=== PATIENT | female | born 1995 | race Two or more races ===

== ENCOUNTER 2024-04-07 13:24 | Emergency (ER) | payer OTHER, SELFPAY ==
[2024-04-07] VITALS (18 sets, daily range): BP systolic 119–147; BP diastolic 79–100; PULSE 83–98; TEMP 36.5; O2SAT 95–98; BMI 63.1
--- NOTE | 2024-04-07 13:26 | ECG_ITS ---
[facility] Test Date: 2024-04-07 Pat Name: EMMA OLIVO Department: Room: - Gender: Female [employer]: : 1995 Requested By: [id number] Order Number: [id number] Reading MD: CARL ADKINS Measurements Intervals [place] Rate: 94 P: 19 NE: 138 QRS: 67 QRSD: 96 T: 1 QT: 362 QTc: 413 Interpretive Statements 1100 Sinus rhythm 4068 Nonspecific [place] abnormality 9130 borderline ECG No previous ECG available for comparison Electronically Signed On 04-08-2024 17:38:53 EDT by CARL ADKINS
[2024-04-07] MEDS: 0.9 % SODIUM CHLORIDE 1,000 ML 1000 ML IV (13:48)
[2024-04-07 14:02] LABS: Basophils Absolute Auto 0.1 10^3/uL (0.0-0.1); Basophils Percent Auto 0.6 % (0.2-2.0); Eosinophils Absolute Auto 0.3 10^3/uL (0.0-0.7); Eosinophils Percent Auto 3.3 % (0.9-7.0); Hematocrit 39.1 % (36.0-48.0); Hemoglobin 13.3 g/dL (12.0-16.0); Immature Granulocytes Abs Auto 0.05 10^3/uL (0.00-0.03); Immature Granulocytes Pct Auto 0.5 % (0.0-0.5); Lymphocytes Absolute Auto 2.2 10^3/uL (1.2-3.8); Lymphocytes Percent Auto 22.3 % (20.5-60.0); Mean Corpuscular Hemoglobin 28.2 pg (26.7-34.0); Mean Platelet Volume 11.2 fL (9.5-13.5); Monocytes Absolute Auto 0.7 10^3/uL (0.3-0.8); Monocytes Percent Auto 7.2 % (1.7-12.0); Neutrophils Absolute Auto 6.6 10^3/uL (1.4-6.5); Neutrophils Percent Auto 66.1 % (43.0-75.0); Platelet Count 225 10^3/uL (150-450); Red Blood Count 4.71 10^6/uL (4.20-5.40); White Blood Count 9.9 10^3/uL (4.0-11.0)
[2024-04-07 14:15] LABS: Alanine Aminotransferase 39 U/L (14-59); Albumin Level 3.6 g/dL (3.4-5.0); Alkaline Phosphatase 82 U/L (46-116); Anion Gap 12.1; Aspartate Amino Transferase 24 U/L (15-37); BUN Creatinine Ratio 8.9; Bilirubin Total 0.7 mg/dL (0.2-1.0); Calcium 9.4 mg/dL (8.5-10.1); Carbon Dioxide 29.1 mmol/L (21.0-32.0); Chloride 102 mmol/L (98-107); Estimated GFR (African America >60 (>=60); Estimated GFR (Non-African Ame >60 (>=60); Globulin 3.5 g/dL; Glucose 129 mg/dL (74-106); Magnesium 1.4 mg/dL (1.8-2.4); Potassium 3.2 mmol/L (3.5-5.1); Sodium 140 mmol/L (136-145); Total Protein 7.1 g/dL (6.4-8.2)
[2024-04-07] MEDS: POTASSIUM BICARBONATE/CIT 25 MEQ TABLET EFF 50 MEQ PO (14:42)
[2024-04-07] MEDS: MAGNESIUM SULFATE IN WATER 2 GM/50 ML PREMIX IV (14:43)
--- NOTE | 2024-04-07 15:12 | ED.ALLEREA1 ---
HPI - Allergic Reaction General Chief complaint: Allergic Reaction Stated complaint: ALLERGIC REACTION Time Seen by Provider: 04/07/24 13:35 Source: patient Mode of arrival: ambulance Limitations: no limitations History of Present Illness HPI narrative: The patient being evaluated in the ER for muscle spasm and symptoms of dry mouth after she was brought to us by the EMS, patient mentioned that she feels like she have a spasm in her upper lower extremities as well as abdomen and she also mentioned that this all started after almost on she started having migraine she presented to [facility] ER, she was treated there with Haldol after which she started having some muscle spasm and she was treated with Ativan when her next visit Right now the patient is not taking any intervention or Benadryl but she mentioned that she is still feeling that she is thirsty all the time in addition to this muscle spasm in her upper and lower extremities She does not have those muscles at the moment while I examined her Related Data Allergies Allergy/AdvReac Type Severity Reaction Status Date / Time acetaminophen [From Vicodin] Allergy Severe Hives Verified 04/07/24 13:30 cephalexin [From Keflex] Allergy Severe Hives Verified 04/07/24 13:30 hydrocodone [From Vicodin] Allergy Severe Hives Verified 04/07/24 13:30 oxycodone [From Percocet] Allergy Severe Hives Verified 04/07/24 13:30 droperidol AdvReac Severe dystonic Verified 04/07/24 13:30 reaction metoclopramide [From Reglan] AdvReac Severe dystonic Verified 04/07/24 13:30 reaction prochlorperazine AdvReac Severe dystonic Verified 04/07/24 13:30 [From Compazine] reaction Sulfa (Sulfonamide AdvReac Severe Hives Verified 04/07/24 13:30 Antibiotics) Review of Systems ROS Status of ROS 10 or more systems reviewed and unremarkable except as noted in history and below Exam Narrative Exam Narrative: Nurses notes and vital signs reviewed and patient is not hypoxic. General: Well-appearing and in no apparent distress. Skin: Warm, dry, no pallor noted. No rash. Head: Normocephalic, atraumatic. Neck: Supple, non-tender. Eye: Pupils are equal, round and EOMI. No scleral icterus. Ears, Nose, Mouth, and Throat: TM are clear, no nasal mucosal hypertrophy. Oral mucosa is moist, no posterior oropharynx erythema, uvula is mid-line Cardiovascular: Regular Rate and Rhythm without murmur, gallop or rub. Respiratory: No accessory muscle use or respiratory distress. Lungs are clear to auscultation, no wheezing, rales or rhonchi Chest Wall: no tenderness Back: No midline thoracic or lumbar vertebral tenderness. No CVA tenderness Musculoskeletal: normal ROM, no calf or popliteal tenderness, no lower extremity edema/swelling GI: Abdomen is soft, non-distended. Normal bowel sounds. No masses appreciated. No tenderness to palpation. No rebound, guarding, or rigidity noted. Neurological: A&O x4. No cranial nerve dysfunction observed. No truncal ataxia. Moves all extremities. Sensation intact. Psychiatric: Cooperative and interactive. Normal mood and affect. Constitutional Vital Signs, click to edit/add: Last Vital Signs Temp 97.7 F 04/07/24 13:30 Pulse 85 04/07/24 14:50 Resp 16 04/07/24 14:50 BP 142/88 H 04/07/24 14:39 Pulse Ox 97 04/07/24 14:50 O2 Del Method Room Air 04/07/24 13:37 Course Vital Signs Vital signs: Vital Signs Pulse Rate 97 H 04/07/24 13:27 Respiratory Rate 17 04/07/24 13:27 Temperature 97.7 F 04/07/24 13:30 Pulse Rate 85 04/07/24 14:50 Respiratory Rate 16 04/07/24 14:50 Blood Pressure 142/88 H 04/07/24 14:39 Pulse Oximetry 97 04/07/24 14:50 Oxygen Delivery Method Room Air 04/07/24 13:37 MDM - Allergic Reaction MDM Narrative Medical decision making narrative: The patient EKG in the ER showing a heart rate of [address] elevation or depression CBC and chemistry showed a low magnesium as well as low potassium magnesium will be replaced with IV magnesium as well as a potassium with p.o. potassium Patient was instructed on hydration he also was instructed about increasing her dietary intake of magnesium potassium rich food and follow-up with her doctor within a week The patient is to follow up with primary care physician in next 2-3 days or to return to the emergency department should any of the signs or symptoms worsen or new symptoms develop. The patient agrees with the following Diagnosis and Treatment plan and the patient will be discharged home. Lab Data Labs: Lab Results 04/07/24 Range/Units 13:54 WBC 9.9 (4.0-11.0) 10^3/uL RBC 4.71 (4.20-5.40) 10^6/uL Hgb 13.3 (12.0-16.0) g/dL Hct 39.1 (36.0-48.0) % MCV 83.0 (81.0-99.0) fL MCH 28.2 (26.7-34.0) pg MCHC 34.0 (29.9-35.2) g/dL RDW 14.0 (11.0-15.0) % Plt Count 225 (150-450) 10^3/uL MPV 11.2 (9.5-13.5) fL Neut % (Auto) 66.1 (43.0-75.0) % Lymph % (Auto) 22.3 (20.5-60.0) % [place] % (Auto) 7.2 (1.7-12.0) % Eos % (Auto) 3.3 (0.9-7.0) % Baso % (Auto) 0.6 (0.2-2.0) % Neut # (Auto) 6.6 H (1.4-6.5) 10^3/uL Lymph # (Auto) 2.2 (1.2-3.8) 10^3/uL [place] # (Auto) 0.7 (0.3-0.8) 10^3/uL Eos # (Auto) 0.3 (0.0-0.7) 10^3/uL Baso # (Auto) 0.1 (0.0-0.1) 10^3/uL Abs Immat Gran (auto) 0.05 H (0.00-0.03) 10^3/uL Imm/Tot Granulo (auto) 0.5 (0.0-0.5) % Sodium 140 (136-145) mmol/L Potassium 3.2 L (3.5-5.1) mmol/L Chloride 102 (98-107) mmol/L Carbon Dioxide 29.1 (21.0-32.0) mmol/L Anion Gap 12.1 BUN 8.0 (7.0-18.0) mg/dL Creatinine 0.90 (0.55-1.02) mg/dL Est GFR ( Amer) >60 (>=60) Est GFR (Non-Af Amer) >60 (>=60) BUN/Creatinine Ratio 8.9 Glucose 129 H (74-106) mg/dL Calcium 9.4 (8.5-10.1) mg/dL Magnesium 1.4 L (1.8-2.4) mg/dL Total Bilirubin 0.7 (0.2-1.0) mg/dL AST 24 (15-37) U/L ALT 39 (14-59) U/L Alkaline Phosphatase 82 (46-116) U/L Total Protein 7.1 (6.4-8.2) g/dL Albumin 3.6 (3.4-5.0) g/dL Globulin 3.5 g/dL Albumin/Globulin Ratio 1.0 Discharge Plan Discharge Stand Alone Forms: Portal Instructions Chief Complaint: Allergic Reaction Clinical Impression: Hypomagnesemia, Hypokalemia, Muscle spasm Patient Disposition: Home, Self-Care Time of Disposition Decision: 15:17 Condition: Good Print Language: Bahamian Instructions: Hypokalemia (ED), Hypomagnesemia (ED) Referrals: Physician,Non-Staff, MD [Primary Care Provider] - 1 week
== END 2024-04-07 15:38 | disposition home or self-care (01) ==
PROVIDERS: Emergency Provider Emergency Medicine
DX: E87.6 Hypokalemia (principal); E83.42 Hypomagnesemia; M62.838 Other muscle spasm
CPT/HCPCS: 36415; 80053; 83735; 85025; 93005; 96365; 99284; J3475

== ENCOUNTER 2024-06-29 21:24 | Emergency (ER) | payer OTHER, SELFPAY ==
[2024-06-29 21:31] VITALS: BP 132/80; PULSE 98; TEMP 36.7; O2SAT 97; BMI 63.3
--- NOTE | 2024-06-29 22:57 | ED_ITS ---
HPI HPI - General Adult General Chief complaint: Headache Stated complaint: Headache Time Seen by Provider: 06/29/24 22:46 Limitations: no limitations History of Present Illness HPI narrative: patient describes long history of migraines since she was 19. Also states she has intracranial hypertension and her neurologist is considering a [employer] shunt for her. States migraines at least 2-3 times per week. Currently receiving weekly magnesium and Benadryl infusions and these help for about one day. Last infusion 3 days ago. Headache left side as in the past. also states she had diplopia that has occurred with past migraines as well. No neck pain or stiffness or paresthesia or her extremities. She is nauseated and this usually resolves with Benadryl Related Data Allergies Allergy/AdvReac Type Severity Reaction Status Date / Time acetaminophen (From Vicodin) Allergy Severe Hives Verified 06/29/24 21:31 cephalexin (From Keflex) Allergy Severe Hives Verified 06/29/24 21:31 hydrocodone (From Vicodin) Allergy Severe Hives Verified 06/29/24 21:31 oxycodone (From Percocet) Allergy Severe Hives Verified 06/29/24 21:31 droperidol AdvReac Severe dystonic Verified 06/29/24 21:31 reaction metoclopramide (From Reglan) AdvReac Severe dystonic Verified 06/29/24 21:31 reaction prochlorperazine (From AdvReac Severe dystonic Verified 06/29/24 21:31 Compazine) reaction Sulfa (Sulfonamide AdvReac Severe Hives Verified 06/29/24 21:31 Antibiotics) Opioid HPI Opioid Management Most Recent Opioid Data: Last Pain Scale 8 06/30/24 02:11 06/30/24 Last ED Pain Assessment 06/30/24 02:08 Last MAR Pain Assessment 06/30/24 02:11 Review of Systems ROS Status of ROS 10 or more systems reviewed and unremark able except as noted in history and below Exam Constitutional Vital Signs, click to edit/add: Last Vital Signs Temp 98.1 F 06/29/24 21:31 Pulse 98 H 06/30/24 02:08 Resp 18 06/30/24 02:08 BP 140/90 06/30/24 02:08 Pulse Ox 96 06/30/24 02:08 Common normals: no apparent distress, average body habitus, oriented x3, no limitations, alert and well nourished [facility] Common normals: normocephalic and head/scalp atraumatic Respiratory Common normals: normal respiratory effort, no retractions, no use of accessory muscles and clear to auscultation bilaterally Cardio Common normals: regular rate, regular rhythm, S1 normal heart sound and S2 normal heart sound Extremity Common normals: normal to inspection and full ROM Neuro Common normals: oriented x3, CN's II-XII intact bilaterally, moves all extremities and no focal motor deficits Psych Appearance: grossly normal Course Vital Signs Vital signs: Vital Signs Temperature 98.1 F 06/29/24 21:31 Pulse Rate 98 H 06/29/24 21:31 Respiratory Rate 18 06/29/24 21:31 Blood Pressure 132/80 06/29/24 21:31 Pulse Oximetry 97 06/29/24 21:31 Temperature 98.1 F 06/29/24 21:31 Pulse Rate 98 H 06/30/24 02:08 Respiratory Rate 18 06/30/24 02:08 Blood Pressure 140/90 06/30/24 02:08 Pulse Oximetry 96 06/30/24 02:08 Medical Decision Making [facility] Narrative Medical decision making narrative: patient has long history of migraine headaches since age 19 and also states she has known intracranial HTN>. followed by Neurology and receiving weekly infusions of magnesium and benadryl. Presents tonight with one of her typical migraine. treated in the ED and headache improved but did not resolve. Discharged home in improved condition and advised to follow up with her neurologist Lab Data Labs: Lab Results 06/29/24 Range/Units 23:00 WBC 9.1 (4.0-11.0) 10^3/uL RBC 4.62 (4.20-5.40) 10^6/uL Hgb 13.0 (12.0-16.0) g/dL Hct 38.6 (36.0-48.0) % MCV 83.5 (81.0-99.0) fL MCH 28.1 (26.7-34.0) pg MCHC 33.7 (29.9-35.2) g/dL RDW 13.4 (11.0-15.0) % Plt Count 197 (150-450) 10^3/uL MPV 11.6 (9.5-13.5) fL Neut % (Auto) 79.3 H (43.0-75.0) % Lymph % (Auto) 13.9 L (20.5-60.0) % [place] % (Auto) 4.8 (1.7-12.0) % Eos % (Auto) 1.4 (0.9-7.0) % Baso % (Auto) 0.3 (0.2-2.0) % Neut # (Auto) 7.2 H (1.4-6.5) 10^3/uL Lymph # (Auto) 1.3 (1.2-3.8) 10^3/uL [place] # (Auto) 0.4 (0.3-0.8) 10^3/uL Eos # (Auto) 0.1 (0.0-0.7) 10^3/uL Baso # (Auto) 0.0 (0.0-0.1) 10^3/uL Abs Immat Gran (auto) 0.03 (0.00-0.03) 10^3/uL Imm/Tot Granulo (auto) 0.3 (0.0-0.5) % Sodium 139 (136-145) mmol/L Potassium 3.6 (3.5-5.1) mmol/L Chloride 103 (98-107) mmol/L Carbon Dioxide 25.9 (21.0-32.0) mmol/L Anion Gap 13.7 BUN 7.0 (7.0-18.0) mg/dL Creatinine 0.85 (0.55-1.02) mg/dL Est GFR ( Amer) >60 (>=60 mL/min/1.73m^2) Est GFR (Non-Af Amer) >60 (>=60 mL/min/1.73m^2) BUN/Creatinine Ratio 8.2 Glucose 111 H (74-106) mg/dL Calcium 9.5 (8.5-10.1) mg/dL Discharge Plan Discharge Chief Complaint: Headache Clinical Impression: Migraine Patient Disposition: Home, Self-Care Mode of Transportation: Private Vehicle Print Language: Latvian Instructions: Migraine Headache (ED) Referrals: Physician,Non-Staff, MD [Primary Care Provider] - 1 week Discharge Date/Time: 06/30/24 02:12
[2024-06-29 23:17] LABS: Basophils Percent Auto 0.3 % (0.2-2.0); Eosinophils Absolute Auto 0.1 10^3/uL (0.0-0.7); Eosinophils Percent Auto 1.4 % (0.9-7.0); Hematocrit 38.6 % (36.0-48.0); Immature Granulocytes Abs Auto 0.03 10^3/uL (0.00-0.03); Immature Granulocytes Pct Auto 0.3 % (0.0-0.5); Lymphocytes Absolute Auto 1.3 10^3/uL (1.2-3.8); Lymphocytes Percent Auto 13.9 % (20.5-60.0); Mean Corpuscular HGB Conc 33.7 g/dL (29.9-35.2); Mean Corpuscular Hemoglobin 28.1 pg (26.7-34.0); Mean Corpuscular Volume 83.5 fL (81.0-99.0); Mean Platelet Volume 11.6 fL (9.5-13.5); Monocytes Absolute Auto 0.4 10^3/uL (0.3-0.8); Monocytes Percent Auto 4.8 % (1.7-12.0); Neutrophils Absolute Auto 7.2 10^3/uL (1.4-6.5); Neutrophils Percent Auto 79.3 % (43.0-75.0); Platelet Count 197 10^3/uL (150-450); Red Blood Count 4.62 10^6/uL (4.20-5.40); Red Cell Distribution Width 13.4 % (11.0-15.0); White Blood Count 9.1 10^3/uL (4.0-11.0)
[2024-06-29 23:26] LABS: Anion Gap 13.7; BUN Creatinine Ratio 8.2; Calcium 9.5 mg/dL (8.5-10.1); Carbon Dioxide 25.9 mmol/L (21.0-32.0); Chloride 103 mmol/L (98-107); Estimated GFR (African America >60 (>=60 mL/min/1.73m^2); Estimated GFR (Non-African Ame >60 (>=60 mL/min/1.73m^2); Glucose 111 mg/dL (74-106); Potassium 3.6 mmol/L (3.5-5.1); Sodium 139 mmol/L (136-145)
[2024-06-29] MEDS: METHYLPREDNISOLONE SOD SUCC PF 125 MG/2 ML VIAL IVP (23:51)
[2024-06-29] MEDS: DIPHENHYDRAMINE HCL 50 MG/ML VIAL IV (23:51)
[2024-06-29] MEDS: MAGNESIUM SULFATE IN WATER 2 GM/50 ML PREMIX IV (23:51)
[2024-06-30] MEDS: ONDANSETRON PF 4 MG/2 ML VIAL IV (00:34)
[2024-06-30 02:08] VITALS: BP 140/90; PULSE 98; O2SAT 96
[2024-06-30] MEDS: MORPHINE SULFATE 4 MG/ML VIAL IV (02:11)
== END 2024-06-30 02:12 | disposition home or self-care (01) ==
PROVIDERS: Emergency Provider Internal Medicine
DX: G43.909 Migraine, unspecified, not intractable, without status migrainosus (principal); G93.2 Benign intracranial hypertension
CPT/HCPCS: 36415; 80048; 85025; 96365; 96375; 99284; J1200; J2270; J2405; J2919; J3475